=== PATIENT | male | born 1970 | race Caucasian/White ===

== ENCOUNTER 2016-11-26 19:44 | Emergency (ER) | payer OTHER ==
[~2016-11-26] VITALS: Ht 180.3 cm; Wt 102.5 kg
--- NOTE | 2016-11-26 22:16 | ED HAND/WRIST INJURY COMPLAINT ---
History of Present Illness General Chief Complaint: Laceration Procedure Stated Complaint: "I CUT MY FINGER" LEFT MIDDLE Source: patient Exam Limitations: no limitations Vital Signs & Intake/Output Vital Signs & Intake/Output Vital Signs Date Time Temp Pulse Resp B/P Pulse O2 O2 Flow FiO2 Ox Delivery Rate 11/27 2019 97.5 106 18 137/82 96 Room Air Allergies Uncoded Allergies: NKDA (12/23/15) Triage Note: RECEIVED 46 YO MALE C/O LACERATION TO TIP OF LEFT MIDDLE FINGER. OCCURED THIS AM CUTTING WOOD. NO ACTIVE BLEEDING Triage Nurses Notes Reviewed? yes Occurred: just prior to arrival Duration: hour(s): (10 AM this morning) Timing: single episode today Injury Environment: work Severity: mild Method of Injury: laceration HPI: 46-year-old male comes into the emergency room with laceration to left middle finger. Patient reports that a piece of wood cut it this morning. Lasted shot unknown. Some associated bleeding at the time. Patient comes in for further evaluation tonight. Mild throbbing pain. Denies any other associated symptoms at this time. Denies any foreign body sensation. (DESIREE MERCADO) Past History Travel History Traveled to [place] past 21 day No Medical History Any Pertinent Medical History? see below for history Neurological: NONE EENT: NONE Cardiovascular: NONE Respiratory: NONE Gastrointestinal: hiatal hernia Hepatic: NONE Renal: NONE Musculoskeletal: NONE Psychiatric: NONE Endocrine: NONE Blood Disorders: NONE Cancer(s): NONE Tetanus Vaccine: 11/26/16 Surgical History Surgical History: N Psychosocial History What is your primary language Wolof Tobacco Use: Never used Family History Hx Contributory? No (DESIREE MERCADO) Review of Systems Review of Systems Constitutional: Reports: no symptoms. EENTM: Reports: no symptoms. Respiratory: Reports: no symptoms. Cardiovascular: Reports: no symptoms. GI: Reports: no symptoms. Genitourinary: Reports: no symptoms. Musculoskeletal: Reports: no symptoms. Skin: Reports: see HPI. Neurological/Psychological: Reports: no symptoms. Hematologic/Endocrine: Reports: no symptoms. Immunologic/Allergic: Reports: no symptoms. All Other Systems: Reviewed and Negative (DESIREE MERCADO) Physical Exam Physical Exam General Appearance: well developed/nourished Head: atraumatic Eyes: Bilateral: normal appearance. Ears, Nose, Throat: normal ENT inspection, hearing grossly normal Neck: normal inspection Cardiovascular/Respiratory: no respiratory distress Back: normal inspection Hand Left: 3rd finger (1 cm laceration) Hand Right: normal inspection, normal range of motion Neurologic/Tendon: normal sensation, normal motor functions, normal tendon functions, responds to pain, no evidence tendon injury, no pulse deficit Skin: intact, normal color, warm/dry Lymphatic: no anterior cervical stacy (DESIREE MERCADO) Progress Differential Diagnosis: abscess, cellulitis, contusion, felon, fracture, gout, paronychia, septic arthritis Plan of Care: 11/26/2016 10:26:42 PM Patient clinically looks well. Nontoxic-appearing. In no apparent distress. (DESIREE MERCADO) Departure Departure Disposition: HOME OR SELF CARE Condition: Stable Clinical Impression Primary Impression: Finger laceration Referrals: PATIENT HAS NO PRIMARY CARE DR (PCP/Family) Additional Instructions: Return in 7 days for suture removal. Return if any redness swelling discharge fever or chills. Return if any other concerns worsening symptoms. Please go over all results of today's visit with your primary care doctor. Contact your primary care doctor to let them know you were here in the emergency room. There may be nonspecific findings which may not be related to your visit today here in the emergency room but may require further evaluation and chronic monitoring by your primary care doctor. If you had a laceration today the chance of foreign body always remains. You should follow-up with your primary care doctor for recheck in 3-5 days for a wound check. If you had an x-ray done there is a chance that a fracture could have been missed on initial read and you should follow-up with your primary care doctor for repeat x-rays if symptoms persist. If your blood pressure was elevated here in the emergency room please have rechecked by her primary care doctor within the next 48 hours by your primary care doctor. If you were prescribed a narcotic here in the emergency room or any type of controlled substances you're not allowed to drive while taking this medication or operate any type of heavy machinery. Narcotics can make you feel lightheaded dizziness nausea and can cause constipation. You may need to fruit or nut picker a stool softener. Thank you for choosing [facility] emergency room. Please return to the emergency room immediately if you have any other concerns worsening of symptoms. Departure Forms: Customer Survey General Discharge Information (DESIREE MERCADO) PA/SECURITY LEAD Co-Sign Statement Statement: ED Attending supervision documentation- [] I saw and evaluated the patient. I have also reviewed all the pertinent lab results and diagnostic results. I agree with the findings and the plan of care as documented in the PA's/SECURITY LEAD's documentation. [X] I have reviewed the ED Record and agree with the PA's/SECURITY LEAD's documentation. [] Additions or exceptions (if any) to the PAs/SECURITY LEAD's note and plan are summarized below: [] (RENY FAROOQ,RACHEL) Procedures Laceration/Wound Repair Progress: Left middle finger laceration, 1 cm, irrigated with peroxide and saline, digital block performed, 2% lidocaine, 4 mL, 6-0 nylon use, 4 sutures placed, bacitracin , dry sterile dressing, patient tolerated procedure well, (DESIREE MERCADO)
[2016-11-26 22:42] VITALS: BP 140/80
== END 2016-11-26 22:43 ==
LOC: ERH 19:44
DX: S61.213A Laceration without foreign body of left middle finger without damage to nail, initial encounter (principal); W26.8XXA Contact with other sharp object(s), not elsewhere classified, initial encounter; Y93.9 Activity, unspecified; Y92.9 Unspecified place or not applicable
CPT/HCPCS: 90471; 90714; J2001

== ENCOUNTER 2016-12-06 08:39 | Emergency (ER) | payer OTHER ==
[~2016-12-06] VITALS: Ht 180.3 cm; Wt 103.0 kg
[2016-12-06 08:43] VITALS: BP 121/81
--- NOTE | 2016-12-06 08:46 | ED ANIMAL BITE/WOUND CHECK ---
History of Present Illness General Chief Complaint: Suture Removal/Wound Recheck Stated Complaint: SUTURE REMOVAL Source: patient, old records Exam Limitations: no limitations Vital Signs & Intake/Output Vital Signs & Intake/Output Vital Signs Date Time Temp Pulse Resp B/P Pulse O2 O2 Flow FiO2 Ox Delivery Rate 12/06 0843 96.1 94 18 121/81 98 Room Air Allergies Uncoded Allergies: NKDA (12/23/15) Reconcile Medications Anusol Hc (Anusol-Hc) 25 MG SUPP.RECT 1 SUP RC BID hemorrhoid Triage Note: PT HERE FOR SUTURE REMOVAL LEFT HAND MIDDLE FINGER. Triage Nurses Notes Reviewed? yes Onset: Abrupt Duration: day(s): (), better Timing: recent history Injury Environment: home Severity: mild Severity Numbers: 1 No Modifying Factors: none Associated Symptoms: denies HPI: 46-year-old male presents for suture removal status post sustaining a laceration 10 days ago requiring 4 sutures to his left third finger. He denies any complications no rashes redness discharge fever or chills. He denies any difficulty with range of motion of the finger there is a mild aching pain with palpation there are no modifying factors or associated symptoms otherwise. The patient is also complaining an exacerbation of his hemorrhoid which she has had in the past causing him pain to his rectum. He denies any blood per rectum no abdominal pain nausea vomiting. He used preparation H last night which normally helps without improvement. He states he was able to reduce the hemorrhoid successfully by himself which helped. Pain is aching constant however improved since reducing the hemorrhoid 3 out of 10. Past History Travel History Traveled to [place] past 21 day No Medical History Any Pertinent Medical History? see below for history Neurological: NONE EENT: NONE Cardiovascular: NONE Respiratory: NONE Gastrointestinal: hiatal hernia Hepatic: NONE Renal: NONE Musculoskeletal: NONE Psychiatric: NONE Endocrine: NONE Blood Disorders: NONE Cancer(s): NONE Tetanus Vaccine: 11/26/16 Surgical History Surgical History: N Psychosocial History What is your primary language Gambian Tobacco Use: Current Daily Use Daily Tobacco Use Amount/Type: => 5 Cigarettes daily ETOH Use: occasional use Illicit Drug Use: denies illicit drug use Family History Hx Contributory? No Review of Systems Review of Systems Constitutional: Reports: see HPI. All Other Systems: Reviewed and Negative Comments Review of systems: See HPI, All other systems negative. Constitutional, no chills fever or weight loss HEENT: no sore throat no congestion Cardiovascular: No chest pain ,palpitation , Skin,no rashes Respiratory: No dyspnea cough sputum or hemoptysis GI: No nausea no vomiting : No dysuria No hematuria Muscle skeletal: no back pain, no neck pain, Neurologic: No numbness no confusion Psych: No stress Heme/endocrine: No bruising no bleeding Immunology: No splenectomy Physical Exam Physical Exam General Appearance: well developed/nourished, no apparent distress, alert, awake , comfortable Comments: Well-developed well-nourished patient in no apparent distress. HEENT: Atraumatic, extraocular motion intact Neck: Supple, FROM, Back: FROM Cardiovascular: Regular rate and rhythms no murmurs Respiratory: No respiratory distress. Patient speaking in full complete sentences. Breath sounds clear to auscultation bilaterally: NO W/R/R Extremities: There is a laceration intact clean and dry to the distal aspect of the left third finger for sutures are in place no overlying erythema capillary refill is within normal limits, full range of motion Neuro: Alert and oriented x3 Skin: Warm & dry;No appreciable rash on exposed skin Psych: Mood affect normal, normal memory normal judgment. Progress Differential Diagnosis: abscess, cellulitis, joint infection, tenosysnovitis, hemorroid, gi bleed Plan of Care: sutures were removed in their entireity by myself no wound dehiscence. pt tolerated well, advised clsoe f/u with pmd, information provided for dr matta as well. rx for ansusol, i answered all of his questions he feels comfortable with plan Departure Departure Time of Disposition: 851 Disposition: HOME OR SELF CARE Condition: Stable Clinical Impression Primary Impression: Visit for suture removal Secondary Impressions: Hemorrhoid Referrals: DAJUAN MATTA JR, DO PATIENT HAS NO PRIMARY CARE DR (PCP/Family) Additional Instructions: anusol suppository as discussed. epson salt baths as needed for pain. follow up with dr matta this week. tylenol or motrin for pain. return with any concerns [facility] Departure Forms: Customer Survey General Discharge Information Prescriptions: Current Visit Scripts Anusol Hc (Anusol-Hc) 1 SUP RC BID #[id number] SUP
[2016-12-06] MEDS ORDERED: ANUSOL-HC25 M1 RC (08:54)
== END 2016-12-06 08:56 ==
LOC: ERH 08:39
DX: S61.213D Laceration without foreign body of left middle finger without damage to nail, subsequent encounter (principal); K64.9 Unspecified hemorrhoids